=== PATIENT | male | born 1995 | race Caucasian/White ===

== ENCOUNTER 2020-09-12 19:01 | Emergency (ER) | payer BC, OTHER ==
[2020-09-12] MEDS ORDERED: Ondansetron ODT 4 MG TAB ONE (19:19)
--- NOTE | 2020-09-12 20:27 | RAD ---
Exam: XR Hand Rt 3 View STANDARD HISTORY: Injured right hand. COMPARISON: None FINDINGS: There is subcutaneous soft tissue swelling in the region of the thenar eminence and between the metac arpals of the thumb and index finger with associated subcutaneous emphysema suggesting associated laceration. No radiopaque foreign body is identified. No fracture or dislocation is seen. No other os seous abnormality. IMPRESSION: 1. Subcutaneous soft tissue swelling with findings suggestive of laceration in the region of the then ar eminence and between the metacarpals of the thumb and index finger. 2. No acute osseous abnormality.
[2020-09-12] MEDS ORDERED: Lidocaine 2% 20 ml MDV ONE (20:33)
[2020-09-12] MEDS ORDERED: Sulfameth/Trimethoprim DS 800-160mg TAB ONE (20:46)
[2020-09-12] MEDS ORDERED: Ibuprofen 800 MG TAB ONE (20:46)
[2020-09-12] MEDS ORDERED: Bacitracin 1 PK ONE (21:31)
== END 2020-09-12 21:38 | disposition home or self-care (01) ==
LOC: MADERS 19:01
DX: S61.210A Laceration without foreign body of right index finger without damage to nail, initial encounter (principal); F17.220 Nicotine dependence, chewing tobacco, uncomplicated; W45.8XXA Other foreign body or object entering through skin, initial encounter
CPT/HCPCS: 12002; Q0162